=== PATIENT | female | born 1975 | race Two or more races ===

== ENCOUNTER 2018-11-15 18:50 | Emergency (ER) | payer SELFPAY ==
[~2018-11-15] VITALS: Ht 157.5 cm; Wt 58.0 kg
[~2018-11-15 18:50] MED LIST: PREN1TAB12 PO
[2018-11-15 18:58] VITALS: BP 174/105; PULSE 102; RESP 24; Ht 157.5 cm; Wt 58.0 kg
== END 2018-11-15 20:15 | disposition left against medical advice (07) ==
LOC: E/R 18:50
DX: Z53.21 Procedure and treatment not carried out due to patient leaving prior to being seen by health care provider (principal)

== ENCOUNTER 2018-12-13 22:17 | Emergency (ER) | payer OTHER ==
[~2018-12-13] VITALS: Ht 149.9 cm; Wt 57.4 kg
[2018-12-13 22:21] VITALS: BP 140/100; PULSE 88; RESP 19; Ht 149.9 cm; Wt 57.4 kg
[2018-12-14] MEDS ORDERED: HYDROCODONE/APAP (5/325) TAB PO ONE (01:30)
[2018-12-14] MEDS ORDERED: IBUP-1542 PO (02:48)
--- NOTE | 2018-12-14 07:40 | ERD ---
ER Documentation Chief Complaint Chief Complaint PELVIC PAIN; HX OF FIBROIDS ; CHRONIC PELVIC PAIN HPI This is a 43-year-old female presents the ED complaining of intermittent mid pelvic pain x5 months. Patient states her pain has been worse over the past 1 month. Patient states she has had pelvic ultrasounds for this pain that were notable for fibroids and an ovarian cyst. She states she has an intrauterine device, Essure, in place and was told her pain could be related to this. She has been unable to see a pharm tech who would remove this. She is very frustr ated with her pain and presents here for pain medication. She denies any vaginal bleeding, fevers, chills, abdominal pain, urinary symptoms or any other symptoms. She has had no relief with ibuprofen. ROS All systems reviewed and are negative except as per history of present illness. Medications Home Meds Active Scripts Ibuprofen* (Motrin*) 600 Mg Tab, 600 MG PO Q6H PRN for PAIN AND OR ELEVATED TEMP, #30 TAB Prov:QUENTIN TREJO PA-C 12/14/18 Reported Medications Vit/Fe Fumarate/Fa ( 1-1 Tablet) 1 Tab Tablet, 1 PO DAILY 08/04/11 Allergies Allergies: Coded Allergies: No Known Allergy (Verified , 09/29/06) PMhx/Soc History of Surgery: No Anesthesia Reaction: No Hx Neurological Disorder: No Hx Respiratory Disorders: No Hx Cardiac Disorders: No Hx Psychiatric Problems: No Hx Miscellaneous Medical Probl: No Physical Exam Vitals Vital Signs Date Temp Pulse Resp B/P (MAP) Pulse Ox O2 O2 Flow FiO2 Time Delivery Rate 12/13/18 97.1 88 19 140/100 98 22:21 (113) Physical Exam Const: No acute distress Head: Atraumatic Eyes: Normal Conjunctiva ENT: Normal External Ears, Nose and Mouth. Neck: Full range of motion. No meningismus. Resp: Clear to auscultation bilaterally Cardio: Regular rate and rhythm, no murmurs Abd: Soft, + mild mid suprapubic tenderness to palpation., non distended. Normal bowel sounds. Negative McBurney's. Negative Tate's. Skin: No petechiae or rashes Back: No midline or flank tenderness Ext: No cyanosis, or edema Neur: Awake and alert Psych: Normal Mood and Affect Results 24 hrs Laboratory Tests Test 12/14/18 01:19 POC Beta HCG, Qualitative NEGATIVE Current Medications Medications Dose Sig/Fortunato Start Time Status Last (Trade) Ordered Route PRN Stop Time Admin Dose Reason Admin 1 tab ONCE ONCE 12/14/18 DC 12/14/18 Acetaminophen PO 01:30 01:14 / 12/14/18 01:31 Hydrocodone Bitart (Bacova (5/325)) Procedures/[facility] LABS & DIAGNOSTIC IMAGING: PROCEDURE: US Pelvis. CLINICAL INDICATION: mid pelvic pain, worse 3 months TECHNIQUE: Multiple sonographic images of the pelvis were obtained utilizing a transabdominal and endovaginal technique. The images were reviewed on a PACS workstation. COMPARISON: None. FINDINGS: The uterus is normal in size, morphology, and echogenicity. Round hypoechoic focus is seen myometrium on the left lateral aspect of the uterus, measuring 1.9 x 2.3 x 1.6 cm. The endometrial stripe is normal in thickness for a premenopausal female, measuring 12 mm. No free fluid. The right ovary is not visualized. No right sided adnexal mass. The left ovary has a normal echotexture and measures 3.6 cm in length. Simple cyst versus dominant follicle noted in the left ovary, measuring 2.1 cm. No mass or perfusion abnormality identified. No left sided adnexal mass. IMPRESSION: 2.3 cm uterine fibroid. 2.1 cm simple cyst versus dominant follicle in the left ovary. Right ovary not visualized. ED COURSE: The patient was given Bacova The medication was well tolerated and the patient had market improvement in symptoms. The patient remained stable throughout ED course. MEDICAL DECISION MAKING: This is a 43-year-old female history of chronic mid pelvic pain for several months now. She was told her pain could be related to her intrauterine device. She has not been able to find a pharm tech who will remove her intrauterine device so she came here for pain control. Her pelvic ultrasound here revealed uterine fibroids with a 2 cm left ovarian cyst. I discussed with patient that this could also be the cause of her pain. She was given Bacova here with improvement of her pain. I told her I would prescribe her ibuprofen however she was unhappy with this and eloped prior to receiving her discharge paperwork. Cures database was consulted and reveals that patient had a Bacova prescription filled within the past month. I do not feel her pain warrants narcotic pain prescription. Patient needs to be seen by [facility] for further evaluation. She has no evidence of ovarian torsion, ovarian rupture, or any other acute abdominal process. Patient is stable and can be managed as outpatient. PRESCRIPTIONS: Ibuprofen. SPECIALIST FOLLOW UP RECOMMENDED: [facility] Patient has been advised to follow up with primary care in 1-2 days. Blood Pressure Assessment: Patient's blood pressure was elevated (>120/80) but appears stable without evidence of hypertension emergency or urgency. The patient was counseled about the risks of hypertension and urged to pursue outpatient monitoring and therapy within a week with their primary care physician. Departure Diagnosis: Primary Impression: Ovarian cyst Laterality: unspecified laterality Qualified Codes: N83.209 - Unspecified ovarian cyst, unspecified side Condition: Stable Patient Instructions: Ovarian Cyst, Pelvic Pain, Unknown Cause Additional Instructions: You must follow-up with an [facility] for further evaluation of your pelvic pain. Ultrasound here reveals a fibroid in the cyst which could be the cause of your pain. I am prescribing you ibuprofen which can take. Return here for any worsening pain, fevers, chills, nausea, vomiting or any other complaints. QUENTIN TREJO PA-C December 14, 2018 07:40
== END 2018-12-14 03:16 | disposition home or self-care (01) ==
LOC: FTE 22:17
DX: N83.202 Unspecified ovarian cyst, left side (principal)
CPT/HCPCS: 76830; 76856; 81025; Z7502; Z7610